=== PATIENT | female | born 1990 | race Caucasian/White ===

== ENCOUNTER 2016-04-07 11:22 | Emergency (ER) | payer OTHER ==
[~2016-04-07] VITALS: Wt 54.4 kg
[~2016-04-07 11:22] MED LIST: ACULAR 3 ML3 M1 OP; ADDERALL30 MG PO; AMOXICILLIN500 MG PO; ANAPROX DS550 MG PO; BACTRIM DS 8001 TA1 PO; BENADRYL50 MG PO; FLEXERIL5 MG PO; KEFLEX500 MG PO; LATU40TA1 PO; LEVAQUIN750 MG PO; Miralax Powder255 GM PO; NORCO 325 MG-51 TAB PO; PREDNISONE10 MG PO; PROCTOCREAM-HC2.5% TP; PYRIDIUM200 MG PO; ROBITUSSIN DM 105 ML PO; TRAZADONE HYDR100 MG PO; ULTRAM50 MG PO; VALIUM5 MG PO; XANAX XR2 MG PO
[2016-04-07] MEDS ORDERED: ROBITUSSIN AC 110 ML PO (12:38)
[2016-04-07] MEDS ORDERED: VIBRAMYCIN100 MG PO (12:38)
[2016-04-07] MEDS ORDERED: PREDNISONE10 MG PO (12:38)
[2016-05-27] MEDS ORDERED: TESSALON PERLE100 M1 PO (14:48)
[2016-05-27] MEDS ORDERED: PREDNISONE20 M1 PO (14:48)
[2016-05-27] MEDS ORDERED: AMOXICILLIN500 M2 PO (14:48)
[2016-05-27] MEDS ORDERED: DIFLUCAN150 MG PO (14:51)
[2016-05-27] MEDS ORDERED: ZANTAC 150150 MG PO (14:57)
== END 2016-04-07 12:52 | disposition home or self-care (01) ==
LOC: ED 11:22
DX: J20.9 Acute bronchitis, unspecified (principal); F17.200 Nicotine dependence, unspecified, uncomplicated

== ENCOUNTER 2016-06-06 18:20 | Emergency (ER) | payer OTHER ==
[~2016-06-06] VITALS: Ht 162.5 cm; Wt 68.0 kg
[~2016-06-06 18:20] MED LIST changes: +AMOXICILLIN500 M2 PO; +DIFLUCAN150 MG PO; +PREDNISONE20 M1 PO; +ROBITUSSIN AC 110 ML PO; +TESSALON PERLE100 M1 PO; +VIBRAMYCIN100 MG PO; +ZANTAC 150150 MG PO
[2016-06-06] MEDS ORDERED: MIRALAX POWDER17 G1 PO (21:20)
== END 2016-06-06 21:23 | disposition home or self-care (01) ==
LOC: ED 18:20
DX: K59.00 Constipation, unspecified (principal); R03.0 Elevated blood-pressure reading, without diagnosis of hypertension; F17.200 Nicotine dependence, unspecified, uncomplicated

== ENCOUNTER → 2017-09-05 | Outpatient (CLI) | payer OTHER ==
[~2017-09-05] MED LIST changes: +MIRALAX POWDER17 G1 PO
== END | disposition home or self-care (01) ==
LOC: US 08:07
DX: Z34.81 Encounter for supervision of other normal pregnancy, first trimester (principal); Z3A.01 Less than 8 weeks gestation of pregnancy

== ENCOUNTER 2017-09-24 13:24 | Emergency (ER) | payer OTHER ==
[~2017-09-24] VITALS: Wt 82.6 kg
[2017-09-24 13:58] LABS: BILIRUBIN NEGATIVE (NEGATIVE); BLOOD 3+ (NEGATIVE); CLARITY CLEAR (CLEAR); COLOR YELLOW (YELLOW); GLUCOSE NEGATIVE (NEGATIVE); KETONE NEGATIVE (NEGATIVE); LEUKO ESTERASE 1+ (NEGATIVE); NITRITE NEGATIVE (NEGATIVE); PH 6.5 (5.0-9.0); UROBILINOGEN 0.2 E.U./dl (0.2-1.0)
[2017-09-24 14:11] LABS: BASO # 0.1 10*3/uL (0.0-0.1); BASO % 0.6 % (0.0-1.0); EOS # 0.1 10*3/uL (0.0-0.4); EOS % 0.6 % (1.0-4.0); HEMATOCRIT 39.8 % (37.0-47.0); HEMOGLOBIN 13.9 g/dl (12.0-16.0); LYMPH # 1.8 10*3/uL (1.3-4.4); LYMPH % 21.4 % (27.0-41.0); MEAN CORPUSCULAR HGB 31.4 pg (27.0-31.0); MEAN CORPUSCULAR HGB CONC 34.9 g/dl (33.0-37.0); MEAN PLATELET VOLUME 10.3 fl (9.6-12.3); MONO # 0.5 10*3/uL (0.1-1.0); MONO % 5.7 % (3.0-9.0); NEUT % 71.5 % (47.0-73.0); PLATELET COUNT AUTOMATED 190 10*3/uL (130-400); RED BLOOD COUNT 4.42 10*6/uL (4.10-5.10); RED CELL DISTRI WIDTH 12.3 % (0-14.5); WHITE BLOOD COUNT 8.4 10*3/uL (4.8-10.8)
[2017-09-24 14:12] LABS: BACTERIA 1+; EPITHELIAL CELLS 16-20; MUCOUS 1+
[2017-09-24 14:24] LABS: BUN 5 mg/dl (7-24); CHLORIDE 108 mmol/L (98-107); CREATININE 0.85 mg/dL (0.55-1.02); POTASSIUM 3.7 mmol/L (3.5-5.1); SODIUM 139 mmol/L (136-145)
== END 2017-09-24 16:00 | disposition home or self-care (01) ==
LOC: ED 13:24
PROVIDERS: Physician Assistant
DX: O36.4XX1 Maternal care for intrauterine death, fetus 1 (principal); Z3A.10 10 weeks gestation of pregnancy

== ENCOUNTER → 2017-09-29 | Outpatient (CLI) | payer OTHER | END | disposition home or self-care (01) | LOC: LAB 14:44 | DX: O02.1 Missed abortion (principal) ==

== ENCOUNTER → 2017-10-01 | Outpatient (CLI) | payer OTHER | END | disposition home or self-care (01) | LOC: LAB 14:20 | DX: Z33.1 Pregnant state, incidental (principal) ==

== ENCOUNTER → 2018-01-26 | Outpatient (CLI) | payer OTHER | END | disposition home or self-care (01) | LOC: RAD 10:40 | DX: J20.8 Acute bronchitis due to other specified organisms (principal); Z87.891 Personal history of nicotine dependence ==

== ENCOUNTER 2022-02-20 08:53 | Emergency (ER) | payer OTHER ==
[~2022-02-20] VITALS: Ht 160 cm; Wt 64.0 kg
[~2022-02-20 08:53] MED LIST changes: +FLONASE ALLERG9.9 ML NAS; +Motrin,Rufen800 MG PO; +ZYRTEC10 MG PO
[2022-02-20 09:20] VITALS: BP 100/78; BP 125/78
[2022-02-20 09:52] VITALS: BP 137/90
[2022-02-20 09:56] LABS: BASO # 0.1 10*3/uL (0.0-0.1); BASO % 0.7 % (0.0-1.0); EOS % 0.3 % (1.0-4.0); HEMATOCRIT 41.6 % (37.0-47.0); LYMPH # 1.4 10*3/uL (1.3-4.4); LYMPH % 19.6 % (27.0-41.0); MEAN CELL VOLUME 90.4 fl (81.0-99.0); MEAN CORPUSCULAR HGB 31.1 pg (27.0-31.0); MEAN CORPUSCULAR HGB CONC 34.4 g/dl (33.0-37.0); MEAN PLATELET VOLUME 9.8 fl (9.6-12.3); MONO # 0.6 10*3/uL (0.1-1.0); MONO % 7.5 % (3.0-9.0); NEUT # 5.3 10*3/uL (2.3-7.9); NEUT % 71.8 % (47.0-73.0); PLATELET COUNT AUTOMATED 170 10*3/uL (130-400); RED CELL DISTRI WIDTH 12.1 % (0-14.5); WHITE BLOOD COUNT 7.3 10*3/uL (4.8-10.8)
[2022-02-20 10:07] LABS: ACT PARTIAL THROMBO TIME 22.2 SECONDS (20.0-32.1)
[2022-02-20 10:19] LABS: ALKALINE PHOSPHATASE 41 U/L (46-116); BUN 7 mg/dl (9-23); CHLORIDE 106 mmol/L (98-107); CPK 48 U/L (34-171); CREATININE 1.04 mg/dL (0.55-1.02); ETHYL ALCOHOL 4.3 mg/dl (<3); MYOGLOBIN 46.5 ng/ml (13-71); POTASSIUM 3.6 mmol/L (3.4-5.1); SGPT/ALT 8 U/L (10-49); SODIUM 136 mmol/L (136-145); THYROID STIM HORMONE (HS) 2.424 uIU/ml (0.550-4.780)
[2022-02-20 11:27] LABS: BILIRUBIN Negative (Negative); BLOOD Negative (Negative); CLARITY Clear (Clear); COLOR Yellow (Yellow); GLUCOSE Negative (Negative); KETONE Trace (Negative); LEUKO ESTERASE Negative (Negative); NITRITE Negative (Negative)
[2022-02-20 11:40] LABS: BACTERIA TRACE; MUCOUS 2+; RBC 0-2 rbc/hpf (0-2)
[2022-02-20 11:43] LABS: URINE AMPHETAMINES Positive (1000ng/ml); URINE BARBITURATES Negative (200ng/ml); URINE BENZODIAZEPINES Positive (200ng/ml); URINE CANNABINOIDS (THC) Positive (50ng/ml); URINE COCAINE Negative (300ng/ml); URINE METHADONE Negative (300ng/ml); URINE OPIATES Negative (300ng/ml); URINE PHENCYCLIDINE Negative (25ng/ml)
[2022-02-20 12:25] VITALS: BP 149/93
[2022-02-20] MEDS ORDERED: MIXED AMPHETAMI30 MG PO (13:53)
[2022-02-20 14:35] VITALS: BP 138/82
== END 2022-02-20 16:14 | disposition short-term general hospital (02) ==
LOC: ED 08:53 → EDHOLD 14:34 → ED 14:34
PROVIDERS: Family Medicine
DX: G93.40 Encephalopathy, unspecified (principal)

== ENCOUNTER → 2023-06-30 | Outpatient (CLI) | payer OTHER ==
[~2023-06-30] MED LIST changes: +MIXED AMPHETAMI30 MG PO
== END | disposition home or self-care (01) ==
LOC: RAD 10:51
PROVIDERS: ATTEND Nurse Practitioner Family
DX: J45.901 Unspecified asthma with (acute) exacerbation (principal)